=== PATIENT | male | born 1995 | race Two or more races ===

== ENCOUNTER 2021-08-10 11:38 | Inpatient (IN) | payer MEDICAID ==
[~2021-08-10] VITALS: Ht 160 cm; Wt 93.9 kg
[2021-08-10 13:14] LABS: COVID AG,FIA SOURCE NASOPHARYNGEAL
[2021-08-10 13:16] LABS: BASOPHILS % (AUTO) 0.6 % (0.0-2.0); EOSINOPHILS % (AUTO) 0.8 % (1.0-6.0); HEMATOCRIT 45.6 % (41-53); HEMOGLOBIN 15.6 g/dL (13.5-17.5); LYMPHOCYTES # (AUTO) 1.2 K/uL (1.0-4.8); LYMPHOCYTES % (AUTO) 16.7 % (22.0-44.0); MEAN CORPUSCULAR HEMOGLOBIN 30.6 pg (26.0-34.0); MEAN CORPUSCULAR HGB CONC 34.2 G/dL (31.0-37.0); MEAN CORPUSCULAR VOLUME 90 fL (80-100); MONOCYTES # (AUTO) 0.6 K/uL (0.1-1.0); MONOCYTES % (AUTO) 8.7 % (2.0-9.0); NEUTROPHILS # (AUTO) 5.3 K/uL (1.8-7.7); NEUTROPHILS % (AUTO) 73.2 % (40.0-70.0); PLATELET COUNT (AUTO) 248 K/uL (150-450); RED CELL DISTRIBUTION WIDTH 13.5 % (11.5-14.5)
[2021-08-10 13:45] LABS: AMPHET/METH SCREEN,URINE NEGATIVE (NEGATIVE); BARBITURATE SCREEN, URINE NEGATIVE (NEGATIVE); BENZODIAZEPINES SCREEN,URINE NEGATIVE (NEGATIVE); CANNABINOID SCREEN,URINE POSITIVE (NEGATIVE); COCAINE SCREEN,URINE NEGATIVE (NEGATIVE); METHADONE SCREEN, URINE NEGATIVE (NEGATIVE); OPIATE SCREEN,URINE NEGATIVE (NEGATIVE)
[2021-08-10 13:49] LABS: PHENCYCLIDINE SCREEN,URINE NEGATIVE (NEGATIVE)
[2021-08-10 17:27] VITALS: BP 125/89
[2021-08-10] MEDS: LORazepam 2 MG TABLET PO PRN (22:34)
[2021-08-10] MEDS: ZOLPIDEM TARTRATE 10 MG TABLET PO PRN (22:34)
[2021-08-11] MEDS: HALOPERIDOL 5 MG TABLET PO PRN (00:04)
[2021-08-11 04:28] VITALS: BP 113/69
[2021-08-11] MEDS ORDERED: DOCUSATE SODIUM 100 MG CAPSULE PO PRN (08:15)
[2021-08-11] MEDS ORDERED: BACITRACIN 28 GM OINTMENT TP PRN (08:15)
[2021-08-11] MEDS ORDERED: MAG HYDROX/AL HYDROX/SIMETH ES 30 ML SUSPENSION UDCUP PO PRN (08:15)
[2021-08-11] MEDS ORDERED: ACETAMINOPHEN 325 MG TABLET PO PRN (08:15)
[2021-08-11] MEDS ORDERED: LOPERAMIDE HCL 2 MG CAPSULE PO PRN (08:15)
[2021-08-11] MEDS ORDERED: IBUPROFEN 600 MG TABLET PO PRN (08:15)
[2021-08-11] MEDS ORDERED: ONDANSETRON HCL 4 MG TABLET PO PRN (08:15)
[2021-08-11] MEDS ORDERED: MAGNESIUM HYDROXIDE SUSPENSION 30 ML UDCUP PO PRN (08:15)
[2021-08-11] MEDS ORDERED: CloNIDine HCL 0.1 MG TABLET PO PRN (08:15)
[2021-08-11] MEDS ORDERED: ALBUTEROL SULFATE HFA 90 MCG/PUFF 8 GM INHALER IH PRN (08:15)
[2021-08-11] MEDS ORDERED: PETROLATUM,WHITE 28 GM JELLY TP PRN (08:15)
[2021-08-11] MEDS ORDERED: BENZOCAINE/MENTHOL LOZENGE PO PRN (08:15)
[2021-08-11] MEDS ORDERED: OMEPRAZOLE 20 MG CAPSULE PO PRN (08:15)
[2021-08-11 08:32] VITALS: BP 106/68
[2021-08-11 16:01] VITALS: BP 102/68
[2021-08-11] MEDS: ZOLPIDEM TARTRATE 10 MG TABLET PO PRN (21:29)
[2021-08-11] MEDS: LORazepam 2 MG TABLET PO PRN (22:40)
[2021-08-12 03:50] VITALS: BP 100/61
[2021-08-12 08:26] VITALS: BP 108/64
[2021-08-12 16:01] VITALS: BP 112/69
[2021-08-12] MEDS: LORazepam 2 MG TABLET PO PRN (21:24)
[2021-08-12] MEDS: HALOPERIDOL 5 MG TABLET PO PRN (21:24)
[2021-08-13 08:12] VITALS: BP 100/60
[2021-08-13] MEDS: LORazepam 2 MG TABLET PO PRN (09:19)
[2021-08-13] MEDS: HALOPERIDOL 5 MG TABLET PO PRN (09:19)
[2021-08-13 16:04] VITALS: BP 111/65
== END 2021-08-13 17:35 | disposition home or self-care (01) | DRG 750 ==
LOC: EMS 11:40 → B3A 14:21
PROVIDERS: ADMIT Psychiatry & Neurology Psychiatry; ATTEND Psychiatry & Neurology Psychiatry
DX: F25.9 Schizoaffective disorder, unspecified (principal); Z91.14 Patient's other noncompliance with medication regimen; F12.10 Cannabis abuse, uncomplicated; G47.00 Insomnia, unspecified; Z20.822 Contact with and (suspected) exposure to COVID-19; K59.00 Constipation, unspecified; F17.200 Nicotine dependence, unspecified, uncomplicated; F41.9 Anxiety disorder, unspecified; Z71.51 Drug abuse counseling and surveillance of drug abuser; Z72.89 Other problems related to lifestyle
CPT/HCPCS: 85025; 99285; G0480

== ENCOUNTER 2021-10-03 18:50 | Inpatient (IN) | payer MEDICAID ==
[~2021-10-03] VITALS: Ht 170.2 cm; Wt 84.8 kg
[2021-10-03 19:36] LABS: GLUCOMETER DEV NAME(LOC) POC.BV
[2021-10-03] MEDS ORDERED: HALOPERIDOL 5 MG TABLET PO PRN (21:00)
[2021-10-03] MEDS: LORazepam 2 MG TABLET PO PRN (21:41)
[2021-10-03] MEDS: ZOLPIDEM TARTRATE 10 MG TABLET PO PRN (21:41)
[2021-10-03 22:29] VITALS: BP 108/68
[2021-10-04 07:41] LABS: BASOPHILS % (AUTO) 0.4 % (0.0-2.0); HEMATOCRIT 41.6 % (41-53); HEMOGLOBIN 14.4 g/dL (13.5-17.5); LYMPHOCYTES # (AUTO) 2.1 K/uL (1.0-4.8); LYMPHOCYTES % (AUTO) 33.1 % (22.0-44.0); MEAN CORPUSCULAR HEMOGLOBIN 30.4 pg (26.0-34.0); MEAN CORPUSCULAR HGB CONC 34.5 G/dL (31.0-37.0); MEAN CORPUSCULAR VOLUME 88 fL (80-100); MONOCYTES # (AUTO) 0.7 K/uL (0.1-1.0); MONOCYTES % (AUTO) 10.3 % (2.0-9.0); NEUTROPHILS # (AUTO) 3.3 K/uL (1.8-7.7); NEUTROPHILS % (AUTO) 51.2 % (40.0-70.0); PLATELET COUNT (AUTO) 220 K/uL (150-450); RED BLOOD CELL COUNT(AUTO) 4.73 MIL/uL (4.50-5.90); RED CELL DISTRIBUTION WIDTH 12.9 % (11.5-14.5)
[2021-10-04 07:49] LABS: HEMOGLOBIN A1C 5.4 % (3.8-5.6)
[2021-10-04 08:08] LABS: ALANINE AMINOTRANSFERASE 24 U/L (12-78); ALBUMIN 3.4 g/dL (3.4-5.0); ALKALINE PHOSPHATASE 101 U/L (46-116); ANION GAP 5 mmol/L (8-16); ASPARTATE AMINOTRANSFERASE 13 U/L (15-37); BILIRUBIN,TOTAL 1.2 mg/dL (0.1-1.0); CALCIUM, TOTAL 8.6 mg/dL (8.8-10.5); CARBON DIOXIDE 30 mmol/L (22-29); CHLORIDE 104 mmol/L (98-107); CHOL/HDL RATIO 1.8 (4.2-7.3); CHOLESTEROL 75 mg/dL (131-200); FREE T4 (FREE THYROXINE) 1.03 ng/dL (0.76-1.46); GLUCOSE,RANDOM 105 mg/dL (70-110); HDL CHOLESTEROL 41 mg/dL (40-60); LDL CHOL (CALC.) 25 mg/dL (0-130); POTASSIUM 3.3 mmol/L (3.5-5.1); SODIUM SERUM 139 mmol/L (136-145); THYROID STIMULATING HORMONE 0.43 uIU/mL (0.36-3.74); TRIGLYCERIDES 46 mg/dL (15-150); UREA NITROGEN, BLOOD 11 mg/dL (7-18)
[2021-10-04 08:12] LABS: GLOMERULAR FILTR. RATE CALC > 60 mL/min (>60)
[2021-10-04 08:18] VITALS: BP 129/78
[2021-10-04] MEDS ORDERED: MAGNESIUM HYDROXIDE SUSPENSION 30 ML UDCUP PO PRN (09:30)
[2021-10-04] MEDS ORDERED: PETROLATUM,WHITE 28 GM JELLY TP PRN (09:30)
[2021-10-04] MEDS ORDERED: IBUPROFEN 600 MG TABLET PO PRN (09:30)
[2021-10-04] MEDS ORDERED: OMEPRAZOLE 20 MG CAPSULE PO PRN (09:30)
[2021-10-04] MEDS ORDERED: MAG HYDROX/AL HYDROX/SIMETH ES 30 ML SUSPENSION UDCUP PO PRN (09:30)
[2021-10-04] MEDS ORDERED: CloNIDine HCL 0.1 MG TABLET PO PRN (09:30)
[2021-10-04] MEDS ORDERED: BACITRACIN 28 GM OINTMENT TP PRN (09:30)
[2021-10-04] MEDS ORDERED: ALBUTEROL SULFATE HFA 90 MCG/PUFF 8 GM INHALER IH PRN (09:30)
[2021-10-04] MEDS ORDERED: DOCUSATE SODIUM 100 MG CAPSULE PO PRN (09:30)
[2021-10-04] MEDS ORDERED: ONDANSETRON HCL 4 MG TABLET PO PRN (09:30)
[2021-10-04] MEDS ORDERED: BENZOCAINE/MENTHOL LOZENGE PO PRN (09:30)
[2021-10-04] MEDS ORDERED: LOPERAMIDE HCL 2 MG CAPSULE PO PRN (09:30)
[2021-10-04] MEDS ORDERED: ACETAMINOPHEN 325 MG TABLET PO PRN (09:30)
[2021-10-04 20:24] VITALS: BP 107/67
[2021-10-05] MEDS: RisperiDONE 1 MG TABLET PO SCH ×2 (08:27→20:21)
[2021-10-05 09:00] VITALS: BP 112/57
[2021-10-05] MEDS ORDERED: POTASSIUM CHLORIDE 20 MEQ ER TABLET PO ONE (09:45)
[2021-10-05 20:22] VITALS: BP 127/80
[2021-10-05] MEDS: ZOLPIDEM TARTRATE 10 MG TABLET PO PRN (20:22)
[2021-10-06 07:07] LABS: ANION GAP 5 mmol/L (8-16); CALCIUM, TOTAL 8.9 mg/dL (8.8-10.5); CARBON DIOXIDE 29 mmol/L (22-29); CHLORIDE 107 mmol/L (98-107); CREATININE 0.82 mg/dL (0.60-1.30); GLUCOSE,RANDOM 99 mg/dL (70-110); POTASSIUM 4.4 mmol/L (3.5-5.1); SODIUM SERUM 141 mmol/L (136-145); UREA NITROGEN, BLOOD 10 mg/dL (7-18)
[2021-10-06 07:12] LABS: GLOMERULAR FILTR. RATE CALC > 60 mL/min (>60)
[2021-10-06] MEDS: RisperiDONE 1 MG TABLET PO SCH ×2 (08:43→20:04)
[2021-10-06 09:35] VITALS: BP 107/63
[2021-10-06] MEDS: LORazepam 2 MG TABLET PO PRN (13:34)
[2021-10-06 20:59] VITALS: BP 112/73
[2021-10-07] MEDS: RisperiDONE 1 MG TABLET PO SCH (08:41)
== END 2021-10-07 16:02 | disposition home or self-care (01) | DRG 750 ==
LOC: B3A 20:56
PROVIDERS: ADMIT Psychiatry & Neurology Psychiatry; ATTEND Psychiatry & Neurology Psychiatry
DX: F25.9 Schizoaffective disorder, unspecified (principal); R45.851 Suicidal ideations; Z91.14 Patient's other noncompliance with medication regimen; F10.10 Alcohol abuse, uncomplicated; G47.00 Insomnia, unspecified; K59.00 Constipation, unspecified; Z20.822 Contact with and (suspected) exposure to COVID-19; F41.9 Anxiety disorder, unspecified; Y90.9 Presence of alcohol in blood, level not specified; F15.10 Other stimulant abuse, uncomplicated; F17.200 Nicotine dependence, unspecified, uncomplicated; F12.10 Cannabis abuse, uncomplicated; Z71.51 Drug abuse counseling and surveillance of drug abuser; Z71.6 Tobacco abuse counseling
CPT/HCPCS: 80048; 80053; 80061; 83036; 84436; 84439; 84443; 85025

== ENCOUNTER 2023-12-25 11:25 | Emergency (ER) | payer MEDICAID ==
[~2023-12-25] VITALS: Ht 172.7 cm; Wt 78.0 kg
[~2023-12-25 11:25] MED LIST: DIVA-112 PO; OLAN5TAB52 PO
[2023-12-25 11:33] VITALS: TEMP 98.4
[2023-12-25 13:30] VITALS: BP 123/71; PULSE 72; RESP 16; O2SAT 98
[2023-12-25] MEDS: ACETAMINOPHEN 325 MG TABLET PO ONE (14:32)
== END 2023-12-25 15:08 | disposition home or self-care (01) ==
LOC: EMS 11:26
DX: S59.902A Unspecified injury of left elbow, initial encounter (principal); F20.9 Schizophrenia, unspecified; X58.XXXA Exposure to other specified factors, initial encounter; Y93.89 Activity, other specified; Y92.89 Other specified places as the place of occurrence of the external cause; Y99.8 Other external cause status
CPT/HCPCS: 29105; 99283

== ENCOUNTER 2024-11-04 11:25 | Emergency (ER) | payer MEDICAID ==
[~2024-11-04] VITALS: Ht 172.7 cm; Wt 77.3 kg
[2024-11-04 11:28] VITALS: BP 149/81; PULSE 77; RESP 18; TEMP 98; O2SAT 99
== END 2024-11-04 11:53 | disposition left against medical advice (07) ==
LOC: EMS 11:28
DX: F32.A Depression, unspecified (principal); F41.9 Anxiety disorder, unspecified; Z53.21 Procedure and treatment not carried out due to patient leaving prior to being seen by health care provider